=== PATIENT | female | born 1975 | race African-American/Black ===

== ENCOUNTER 2016-12-09 08:57 | Emergency (ER) | payer SELFPAY ==
[~2016-12-09] VITALS: Ht 165.1 cm; Wt 97.2 kg
[2016-12-09] MEDS ORDERED: MIRA3350 PO (09:17)
[2016-12-09] MEDS ORDERED: AUGMENTIN 875 MG TAB PO ONE (10:00)
[2016-12-09] MEDS ORDERED: AUGM875T28 PO (10:01)
[2016-12-09] MEDS ORDERED: IBUP80TA PO (10:01)
[2016-12-09 10:05] VITALS: BP 141/63
== END 2016-12-09 10:06 | disposition home or self-care (01) ==
LOC: M ED 08:57
DX: J01.90 Acute sinusitis, unspecified (principal); Z20.89 Contact with and (suspected) exposure to other communicable diseases; J45.909 Unspecified asthma, uncomplicated; K21.9 Gastro-esophageal reflux disease without esophagitis

== ENCOUNTER → 2016-12-09 | Outpatient (CLI) | payer SELFPAY ==
[~2016-12-09] MED LIST: AUGM875T28 PO; IBUP80TA PO; MIRA3350 PO
--- NOTE | 2016-12-09 09:31 | REP ---
PELVIC SONOGRAPHY: HISTORY: Lower abdominal pain and bloating. No comparison imaging. FINDINGS: Transabdominal and transvaginal scanning are performed. The uterus is markedly enlarged with dimensions of 17.5 x 13.1 x 11.1 cm. Uterine texture is heterogeneous. There is a large fibroid in the uterus measuring 10.9 x 9.5 x 8.2 cm. It is difficult to visualize the endometrium. The left ovary could not be visualized. No left adnexal mass or cyst is seen. Right ovary appears normal measuring 2.9 x 2.1 x 3.1 cm. IMPRESSION: Markedly enlarged fibroid uterus. One 10.9 cm fibroid is identified. The endometrium could not be well identified. The left ovary was not visualized directly. Signed by Ivan Martin MD 12/09/2016 09:35 A
== END ==
LOC: M RAD 07:46
PROVIDERS: ATTEND Physician Assistant
DX: N85.2 Hypertrophy of uterus (principal); D25.9 Leiomyoma of uterus, unspecified

== ENCOUNTER 2018-02-23 09:44 | Day surgery (SDC) | payer OTHER ==
[2018-02-23 10:23] LABS: HEMATOCRIT 26.2 % (36.0-47.0); HEMOGLOBIN 7.4 g/dl (12.0-15.5); MEAN CORPUSCULAR HEMOGLOBIN 17.3 pg (27.0-33.0); MEAN CORPUSCULAR HGB CONC 28.2 g/dl (32.0-36.5); MEAN CORPUSCULAR VOLUME 61.2 fl (80.0-96.0); PLATELET COUNT, AUTOMATED 360 10^3/uL (150-450); RED BLOOD COUNT 4.28 10^6/uL (4.00-5.40); RED CELL DISTRIBUTION WIDTH 20.9 % (11.5-14.5); WHITE BLOOD COUNT 5.4 10^3/uL (4.0-10.0)
[2018-02-23] MEDS: LR 1,000 ML IV ×3 (11:13→23:54)
[2018-02-23 11:17] LABS: CONTROL LINE UCG INT CTR LINE PRESENT; URINE PREG TEST NEGATIVE (NEGATIVE)
[2018-02-23] MEDS ORDERED: LIDOCAINE 2% INJ 100 MG/5 ML SDV (FOR ANES.) As Ordered (13:15)
[2018-02-23] MEDS ORDERED: METOCLOPRAMIDE INJ 10MG/2ML VIAL (J2765) As Ordered (13:15)
[2018-02-23] MEDS ORDERED: dexameTHASONE 4 MG/ML 1ML VIAL (J1100) As Ordered (13:15)
[2018-02-23] MEDS ORDERED: GLYCOPYRROLATE INJ 0.2 MG/ML 2 ML VIAL As Ordered (13:15)
[2018-02-23] MEDS ORDERED: fentaNYL 250 MCG/5 ML INJECTION (J3010) As Ordered (13:15)
[2018-02-23] MEDS ORDERED: ROCURONIUM BROMIDE 50 MG/5 ML VIAL As Ordered ×4 (13:15→15:14)
[2018-02-23] MEDS ORDERED: ONDANSETRON 4MG/2ML VIAL (J2405) As Ordered (13:15)
[2018-02-23] MEDS ORDERED: NEOSTIGMINE 10 MG/10 ML VIAL (J2710) As Ordered (13:15)
[2018-02-23] MEDS ORDERED: PROPOFOL 200 MG/20 ML VIAL As Ordered (13:15)
[2018-02-23] MEDS ORDERED: MIDAZOLAM INJ 2 MG/2 ML VIAL (J2250) As Ordered ×2 (13:16→16:20)
[2018-02-23] MEDS ORDERED: HYDROmorphone HCL 2 MG/ML 1ML VIAL (J1170) As Ordered (13:18)
[2018-02-23] MEDS ORDERED: LABETALOL HCL 100 MG/20 ML VIAL As Ordered (15:39)
[2018-02-23] MEDS: ceFAZolin 2 GM/D5W 50 ML IV BAG (J0690 PER 500MG) As Ordered (16:50)
[2018-02-23] MEDS ORDERED: fentaNYL 100 MCG/2 ML INJECTION (J3010) As Ordered ×2 (17:52→20:01)
[2018-02-23] MEDS: METHYLENE BLUE 0.5% (5MG/ML) 10 ML AMP (PROVAYBLUE)(Q9968 PER 1MG) As Ordered (19:40)
[2018-02-23] MEDS: fentaNYL 100 MCG/2 ML INJECTION (J3010) IV ×4 (19:42→20:02)
[2018-02-23] MEDS ORDERED: MORPHINE 1MG/ML IN 0.9% NACL 100ML IV BAG As Ordered (20:00)
[2018-02-23] MEDS ORDERED: diphenhydrAMINE INJ 50MG/ML VIAL (J1200) IV (20:00)
[2018-02-23] MEDS ORDERED: NALOXONE INJ 0.4 MG/1 ML VIAL (J2310) IV (20:00)
[2018-02-23] MEDS ORDERED: NALBUPHINE HCL 10 MG/ML AMP (J2300) IV (20:00)
[2018-02-23] MEDS ORDERED: EPIDURAL/PCA KEYS XX (20:00)
[2018-02-23] MEDS: MORPHINE 1MG/ML IN 0.9% NACL 100ML IV BAG IV (20:05)
[2018-02-23] MEDS ORDERED: PERCOCET 5MG/325MG TAB PO (20:15)
[2018-02-23] MEDS ORDERED: ALBUTEROL 90 MCG/ACT 8GM HFA INHALER INH (20:15)
[2018-02-23] MEDS ORDERED: HYDROMORPHONE HCL 0.5 MG/ 0.5 ML SYRINGE (J1170 PER 1) IV (20:15)
[2018-02-23] MEDS: ONDANSETRON 4MG/2ML VIAL (J2405) IV (20:23)
[2018-02-23] MEDS ORDERED: KETOROLAC 30 MG/ML VIAL (J1885) As Ordered (21:22)
[2018-02-24 07:43] LABS: HEMATOCRIT 22.2 % (36.0-47.0); MEAN CORPUSCULAR HEMOGLOBIN 17.1 pg (27.0-33.0); MEAN CORPUSCULAR HGB CONC 27.9 g/dl (32.0-36.5); MEAN CORPUSCULAR VOLUME 61.3 fl (80.0-96.0); PLATELET COUNT, AUTOMATED 344 10^3/uL (150-450); RED BLOOD COUNT 3.62 10^6/uL (4.00-5.40); RED CELL DISTRIBUTION WIDTH 20.8 % (11.5-14.5); WHITE BLOOD COUNT 8.5 10^3/uL (4.0-10.0)
[2018-02-24 07:45] LABS: HEMOGLOBIN 6.2 g/dl (12.0-15.5)
[2018-02-24] MEDS: LR 1,000 ML IV (07:55)
[2018-02-24] MEDS: IBUPROFEN 600 MG TAB PO (09:21)
[2018-02-24] MEDS: NORCO, ANEXSIA 5/325MG TABLET (HYDROcodone/ACETAMINOPHEN) PO ×2 (10:12→15:09)
[2018-02-24 11:47] LABS: HEMATOCRIT 21.4 % (36.0-47.0)
[2018-02-24 12:00] LABS: HEMOGLOBIN 6.1 g/dl (12.0-15.5)
== END 2018-02-24 15:40 | disposition home or self-care (01) ==
LOC: M SDC 09:44 → M PED 21:35
DX: D25.9 Leiomyoma of uterus, unspecified (principal); R10.817 Generalized abdominal tenderness; N80.0 Endometriosis of uterus; J45.909 Unspecified asthma, uncomplicated; E66.9 Obesity, unspecified; K21.9 Gastro-esophageal reflux disease without esophagitis; R06.83 Snoring; Z68.35 Body mass index [BMI] 35.0-35.9, adult
CPT/HCPCS: 58573

== ENCOUNTER → 2018-11-08 | Outpatient (CLI) | payer OTHER ==
[~2018-11-08] MED LIST changes: +CLAR10CA3 PO; +IBUP-1022 PO; +NORC1TAB7 PO; +TYLE500T78 PO; +VENTAER INH
[2018-11-08 10:59] LABS: HEMATOCRIT 41.5 % (36.0-47.0); HEMOGLOBIN 13.5 g/dl (12.0-15.5); MEAN CORPUSCULAR HGB CONC 32.5 g/dl (32.0-36.5); MEAN CORPUSCULAR VOLUME 79.8 fl (80.0-96.0); PLATELET COUNT, AUTOMATED 285 10^3/uL (150-450); WHITE BLOOD COUNT 5.3 10^3/uL (4.0-10.0)
--- NOTE | 2018-11-08 11:19 | REP ---
RIGHT ANKLE, FOUR VIEWS: HISTORY: Pain. There is no acute fracture or dislocation. The joint space is normal in appearance. IMPRESSION: There is no acute fracture or dislocation. Electronically Signed by Quinn Simeon MD 11/08/2018 11:25 A
[2018-11-08 11:37] LABS: ALBUMIN 3.5 GM/DL (3.2-5.2); ALT/SGPT 19 U/L (12-78); BILIRUBIN,TOTAL 0.6 MG/DL (0.2-1.0); BLOOD UREA NITROGEN 10 MG/DL (7-18); CALCIUM LEVEL 8.7 MG/DL (8.5-10.1); CARBON DIOXIDE LEVEL 30 MEQ/L (21-32); CHLORIDE LEVEL 108 MEQ/L (98-107); CHOLESTEROL LEVEL 196 MG/DL (<200); CHOLESTEROL RISK RATIO 4.558 (<5); CREATININE FOR GFR 0.81 MG/DL (0.55-1.30); FREE T4 1.06 NG/DL (0.76-1.46); GLOMERULAR FILTRATION RATE > 60.0 (>58); GLUCOSE, FASTING 94 MG/DL (70-100); HDL CHOLESTEROL 43 MG/DL (>40); LDL CHOLESTEROL 136 MG/DL (<100); NON-HDL-C 153 MG/DL; POTASSIUM SERUM 3.9 MEQ/L (3.5-5.1); SODIUM LEVEL 141 MEQ/L (136-145); TOTAL PROTEIN 7.7 GM/DL (6.4-8.2); TRIGLYCERIDES LEVEL 83 MG/DL (<150)
[2018-11-08 11:42] LABS: HEMOGLOBIN A1c 6.2 %
== END ==
LOC: M LAB 10:20
PROVIDERS: ATTEND Internal Medicine
DX: Z00.00 Encounter for general adult medical examination without abnormal findings (principal); M25.571 Pain in right ankle and joints of right foot

== ENCOUNTER 2018-11-22 18:06 | Emergency (ER) | payer OTHER ==
[~2018-11-22] VITALS: Ht 165.1 cm; Wt 90.8 kg
[2018-11-22 18:07] VITALS: BP 171/107
[2018-11-22] MEDS ORDERED: ZYRTTAB8 PO (18:19)
--- NOTE | 2018-11-22 19:05 | REP ---
Left wrist four views: There is a nondisplaced fracture of the base of the fifth digit metacarpal. No other fracture is identified. Mineralization is normal. There are no calcifications or foreign bodies. Joint spaces are unremarkable. Impression: Nondisplaced fracture base of the fifth digit metacarpal. Electronically Signed by Franklin Reddy MD 11/22/2018 06:57 P
--- NOTE | 2018-11-22 19:06 | REP ---
Left hand four views: There is a nondisplaced fracture at the base of the fifth digit metacarpal. Mineralization and joint spaces are otherwise normal. There are no calcifications or foreign bodies. Impression: Fifth digit metacarpal base fracture. Electronically Signed by Franklin Reddy MD 11/22/2018 06:57 P
[2018-11-22] MEDS ORDERED: KETOROLAC TROMETHAMINE 10 MG TAB PO ONE (21:15)
[2018-11-22] MEDS ORDERED: KEFL500C17 PO (21:29)
== END 2018-11-22 22:09 | disposition home or self-care (01) ==
LOC: M ED 18:06
DX: S62.347A Nondisplaced fracture of base of fifth metacarpal bone, left hand, initial encounter for closed fracture (principal); S90.811A Abrasion, right foot, initial encounter; W01.0XXA Fall on same level from slipping, tripping and stumbling without subsequent striking against object, initial encounter; Y92.014 Private driveway to single-family (private) house as the place of occurrence of the external cause; Y93.01 Activity, walking, marching and hiking; J45.909 Unspecified asthma, uncomplicated; K21.9 Gastro-esophageal reflux disease without esophagitis; Z79.51 Long term (current) use of inhaled steroids

== ENCOUNTER 2019-01-17 07:15 | Outpatient (RCR) | payer OTHER ==
[~2019-01-17 07:15] MED LIST changes: +KEFL500C17 PO; +ZYRTTAB8 PO
== END 2019-01-27 ==
LOC: M OT 07:15
PROVIDERS: ATTEND Physician Assistant
DX: S62.317D Displaced fracture of base of fifth metacarpal bone, left hand, subsequent encounter for fracture with routine healing (principal)

== ENCOUNTER → 2019-01-26 | Outpatient (CLI) | payer OTHER ==
--- NOTE | 2019-01-26 14:03 | REPMRS ---
Patient History The patient states she has not had a clinical breast exam in over a year. Family history of breast cancer at age 42 in mother, prostate cancer at age 50 or over in maternal grandfather. No Hormone Replacement Therapy Digital Woman Screen Mammo: January 26, 2019 - Exam #: [id number] Bilateral CC and MLO view(s) were taken. Technologist: Angela Jason, Technologist No prior studies available for comparison. FINDINGS: There are scattered fibroglandular densities. There is no evidence of dominant mass, architectural distortion, or grouped microcalcification typical of malignancy. 3-D tomosynthesis shows no additional findings. Assessment: BI-RADS/ACR category 1 mammogram. Negative Mammogram. Recommendation Routine screening mammogram of both breasts in 1 year (for women over age 40). This patient's Lifetime Breast Cancer RIsk is estimated at 18.1 %. This mammogram was interpreted with the aid of an FDA-approved computer-aided dectection system. Electronically Signed By: Saad Martin MD 01/26/19 0245
== END ==
LOC: M WHC 10:50
PROVIDERS: ATTEND Internal Medicine
DX: Z12.31 Encounter for screening mammogram for malignant neoplasm of breast (principal); Z80.3 Family history of malignant neoplasm of breast

== ENCOUNTER → 2019-01-31 | Outpatient (CLI) | payer OTHER ==
--- NOTE | 2019-01-31 08:56 | REP ---
Clinical: Pain with prior trauma . Technique: Internal rotation, external rotation, and Y view left shoulder . Findings: No acute fracture or dislocation. The acromioclavicular and glenohumeral joints are intact and normal for age. No periarticular calcifications or loose bodies are identified. A very small early spur forming along the inferior margin of the humeral head is suggested. Sub acromial space is normal. Surrounding soft tissues are unremarkable. Impression: Relatively normal age appropriate examination. Very subtle early degenerative changes along the inferior margin of the humeral head noted. Electronically Signed by Kuldeep Bradshaw MD 01/31/2019 08:47 A
== END ==
LOC: M RAD 08:03
PROVIDERS: ATTEND Internal Medicine
DX: M25.512 Pain in left shoulder (principal)

== ENCOUNTER 2019-02-21 07:38 | Outpatient (RCR) | payer OTHER, SELFPAY | END 2019-02-26 | LOC: M PT 07:38 | PROVIDERS: ATTEND Internal Medicine | DX: Z51.89 Encounter for other specified aftercare (principal); M25.373 Other instability, unspecified ankle ==

== ENCOUNTER 2019-02-22 06:45 | Outpatient (RCR) | payer OTHER, SELFPAY | END 2019-02-26 | LOC: M OT 06:45 | PROVIDERS: ATTEND Physician Assistant | DX: S62.317D Displaced fracture of base of fifth metacarpal bone, left hand, subsequent encounter for fracture with routine healing (principal) ==

== ENCOUNTER → 2019-09-15 | Outpatient (CLI) | payer OTHER | LOC: M LABSMTC 11:13 | PROVIDERS: ATTEND Family Medicine | DX: Z11.59 Encounter for screening for other viral diseases (principal); Z20.818 Contact with and (suspected) exposure to other bacterial communicable diseases ==

== ENCOUNTER → 2020-03-28 | Outpatient (REF) | payer OTHER ==
[2020-03-28 18:08] LABS: FREE T4 1.15 NG/DL (0.76-1.46); THYROID STIMULATING HORMONE 0.7 uIU/ML (0.358-3.740)
[2020-03-28 18:49] LABS: HEMOGLOBIN A1c 5.8 %
== END ==
LOC: M SFHCPLAZ 15:29
DX: Z00.00 Encounter for general adult medical examination without abnormal findings (principal)

== ENCOUNTER → 2020-05-27 | Outpatient (CLI) | payer OTHER ==
--- NOTE | 2020-05-27 15:37 | REPMRS ---
Patient History The patient states she has not had a clinical breast exam in over a year. Family history of breast cancer at age 42 in mother, prostate cancer at age 50 or over in maternal grandfather. No Hormone Replacement Therapy Digital Woman Screen Mammo: May 27, 2020 - Exam #: [id number] Bilateral CC and MLO view(s) were taken. Technologist: Mamie [place], Technologist Prior study comparison: January 26, 2019, bilateral digital woman screen mammo performed at [facility]. FINDINGS: There are scattered fibroglandular densities. The Volpara volumetric breast density category is:B. There has been no change in the appearance of the mammogram from the prior studies. There is a mild amount of scattered fibroglandular density which is fairly symmetric. There is no interval development of dominant mass, architectural distortion, or grouped microcalcification suggestive of malignancy. 3-D tomosynthesis shows no additional findings. Assessment: BI-RADS/ACR category 1 mammogram. Negative Mammogram. Recommendation Routine screening mammogram of both breasts in 1 year (for women over age 40). This patient's [facility] Lifetime Breast Cancer Risk is estimated at 17.7 %. This mammogram was interpreted with the aid of an FDA-approved computer-aided dectection system. Electronically Signed By: Saad Martin MD 05/27/20 [id number]
== END ==
LOC: M WHC 13:41
PROVIDERS: ATTEND Internal Medicine
DX: Z12.31 Encounter for screening mammogram for malignant neoplasm of breast (principal)

== ENCOUNTER → 2020-07-25 | Outpatient (REF) | payer OTHER ==
[2020-07-25 18:13] LABS: HEMOGLOBIN A1c 5.9 %
== END ==
LOC: M SFHCPLAZ 14:52
DX: R73.03 Prediabetes (principal)

== ENCOUNTER 2021-03-21 06:06 | Emergency (ER) | payer OTHER ==
[~2021-03-21] VITALS: Ht 165.1 cm; Wt 85.9 kg
[2021-03-21 06:06] VITALS: BP 131/81
--- OUTSIDE RECORDS SUMMARY | 2021-03-21 06:11 | CCD | Continuity of Care Document ---
Author Author Laurie VIRGEN PAAlbertoC Organization Unknown Address [address] [place] [id number] Phone [phone] Care Team Providers Care Set Up Operator Tool Name Role Phone Jordy Morales DO AUTM [phone] Rowena Romeo AUTM [phone] Problems Active Problems Provider Date Abrasion of hand Onset: 11/22/2018 Abrasion of foot Onset: 11/22/2018 Acute sinusitis Onset: 12/09/2016 Fracture of metacarpal bone Onset: 11/22 Social History Type Date Description Comments Sex Unknown ETOH Use Occasionally consumes alcohol Tobacco Use Start: Unknown End: Unknown Patient is a former smoker Allergies, Adverse Reactions, Alerts Description No Known Drug Allergies Medications Active Medications SIG Qnty Indications Ordering Provide r Date Tizanidine HCL 4mg Tablets 1 by mouth three times a day 30tabs S46.812A Aroldo Morton MD 03/03/2021 Mobic 15mg Tablets 1 by mouth after meals every day 30tabs S46.812A Aroldo Morton MD 03/03/2021 Tylenol Extra Strength 500mg Table ts 2 pills 2-3x/d as needed 60tabs S62.317A Junior Banuelos MD Cephalexin 500mg Capsules Every 12 Hours 20caps Unknown 11/22/2018 Proair HFA 108(90Base) mcg/Act Aer osol As Needed Unknown 12 Hour Allergy-D 5-120mg Tablets ER 12HR Twice A Day for Allergy Symptoms 20tabs Unknown Ibuprofen 600mg Tablets Every 6 Hours as needed for Pain 30tabs Unknown Immunizations Description No Information Available Vital Signs Date Vital Result Comment 03/03/2021 9:35am Body Temperature 97.1 F Height 65.5 inches 5'5.50" Weight 193.50 lb BMI (Body Mass Index) 31.7 kg/m2 Results Description No Information Available Procedures Date Code Description Status 03/03/2021 98316 Office/Outpatient Established Hi gh MDM 40-54 Min Completed 03/03/2021 77512 X-Ray Hip Unilateral With Pelvis 2-3 Views Completed 03/03/2021 63227 X-Ray Shoulder Complete Complete d 03/03/2021 73177 Inject/Drain Joint/Bursa Major C ompleted Medical Devices Description No Information Available Encounters Type Date Location Provider Dx Diagnosis Office Visit 03/03/2021 9:00a [place] Keyanna Virgen PA-C S70.02x A Contusion of left hip, initial encounter S46.012A Strain of musc/tend the rota tor cuff of left shoulder, init Assessments Date Code Description Provider 03/03/2021 S70.02xA Contusion of left hip, initial e ncounter Keyanna Virgen PA-C 03/03/2021 S46.012A Strain of muscle(s) and tendon(s) of the rotator cuff of left shoulder, initial encounter Keyanna Virgen PA-C Plan of Treatment 03/03/2021 - Keyanna Virgen PA-C* S70.02xA Contusion of left hip, initial encounter* Follow up:* 4 weeks * S46.012A Strain of muscle(s) and tendon(s) of the rotator cuff of left shoulder, initial encounter * All * New Medication:* Tizanidine HCL 4 mg - 1 by mouth three times a day * Mobic 15 mg - 1 by mouth after meals every day Functional Status Description No Information Available Mental Status Description No Information Available Referrals Description No Information Available
--- OUTSIDE RECORDS SUMMARY | 2021-03-21 06:11 | CCD ---
Author Author [facility] Organization [facility] Address Unknown Phone Unavailable Care Team Providers Care Growth Media Mixer Mushroom Name Role Phone [facility], [facility]-C Unavailable Unavailabl e Fish, [facility], PA-C Unavailable Unavailabl e Fish, [facility], PA-C Unavailable Unavailabl e Fish, [facility], PA-C Unavailable Unavailabl e Fish, [facility], PA-C Un[facility] Unavailabl e Fish, [facility], PA-C Unavailable Unavailabl e Fish, [facility], PA-C Unavailable Unavailabl e Fish, [facility], PA-C Unavailable Unavailabl e Fish, [facility], PA-C Unavailable Unavailabl e Fish, [facility], PA-C Unavailable Unavailabl e Fish, [facility], PA-C Unavailable Unavailabl e Fish, [facility], PA-C Unavailable Unavailabl e Fish, [facility], PA-C Unavailable Unavailabl e Fish, [facility], PA-C Unavailable Unavailabl e Fish, [facility], PA-C Unavailable Unavailabl e Fish, [facility], PA-C Unavailable Unavailabl e Fish, [facility], PA-C Unavailable Unavailabl e Fish, [facility], PA-C Unavailable Unavailabl e Fish, [facility], PA-C Unavailable Unavailabl e Fish, [facility], PA-C Unavailable Unavailabl e Fish, [facility], PA-C Unavailable Unavailabl e Fish, [facility], PA-C Unavailable Unavailabl e Fish, [facility], PA-C Unavailable Unavailabl e Fish, [facility], PA-C Unavailable Unavailabl e Fish, [facility], PA-C Unavailable Unavailabl e Fish, [facility], PA-C Unavailable Unavailabl e Fish, [facility], PA-C Unavailable Unavailabl e Fish, [facility], PA-C Unavailable Unavailabl e Fish, [facility], PA-C Unavailable Unavailabl e Fish, [facility], PA-C Unavailable Unavailabl e Fish, [facility], PA-C Unavailable Unavailabl e Fish, [facility], PA-C Unavailable Unavailabl e Fish, [facility], PA-C Unavailable Unavailabl e Fish, [facility], PA-C Unavailable Unavailabl e Fish, [facility], PA-C Unavailable Unavailabl e Feola, T Janay PA Unavailable Unavailable Feola, T Janay PA Unavailable Unavailable Feola, T Janay PA Unavailable Unavailable Feola, T Janay PA Unavailable Unavailable Feola, T Janay PA Unavailable Unavailable Feola, T Janay PA Unavailable Unavailable Feola, T Janay PA Unavailable Unavailable Feola, T Janay PA Unavailable Unavailable Feola, T Janay PA Unavailable Unavailable Feola, T Janay PA Unavailable Unavailable Feola, T Janay PA Unavailable Unavailable Feola, T Janay PA Unavailable Unavailable Feola, T Janay PA Unavailable Unavailable Feola, T Janay PA Unavailable Unavailable Feola, T Janay PA Unavailable Unavailable Feola, T Janay PA Unavailable Unavailable Feola, T Janay PA Unavailable Unavailable Feola, T Janay PA Unavailable Unavailable Feola, T Janay PA Unavailable Unavailable Feola, T Janay PA Unavailable Unavailable Feola, T Janay PA Unavailable Unavailable Feola, T Janay PA Unavailable Unavailable Feola, T Janay PA Unavailable Unavailable Feola, T Janay PA Unavailable Unavailable Feola, T Janay PA Unavailable Unavailable Feola, T Janay PA Unavailable Unavailable Feola, T Janay PA Unavailable Unavailable Feola, T Janay PA Unavailable Unavailable Feola, T Janay PA Unavailable Unavailable Feola, T Janay PA Unavailable Unavailable Feola, T Janay PA Unavailable Unavailable Feola, T Janay PA Unavailable Unavailable Feola, T Janay PA Unavailable Unavailable Feola, T Janay PA Unavailable Unavailable Feola, T Janay PA Unavailable Unavailable Feola, T Janay PA Unavailable Unavailable Feola, T Janay PA Unavailable Unavailable Feola, T Janay PA Unavailable Unavailable Feola, T Janay PA Unavailable Unavailable Feola, T Janay PA Unavailable Unavailable Feola, T Janay PA Unavailable Unavailable Danielle Jha MD Unavailable Unavailable Danielle Jha MD Unavailable Unavailable Danielle Jha MD Unavailable Unavailable Danielle Jha MD Unavailable Unavailable Danielle Jha MD Unavailable Unavailable Danielle Jha MD Unavailable Unavailable Danielle Jha MD Unavailable Unavailable Danielle Jha MD Unavailable Unavailable Danielle Jha MD Unavailable Unavailable Danielle Jha MD Unavailable Unavailable Danielle Jha MD Unavailable Unavailable Danielle Jha MD Unavailable Unavailable Danielle Jha MD Unavailable Unavailable Danielle Jha MD Unavailable Unavailable Danielle Jha MD Unavailable Unavailable Danielle Jha MD Unavailable Unavailable Danielle Jha MD Unavailable Unavailable Danielle Jha MD Unavailable Unavailable Danielle Jha MD Unavailable Unavailable Danielle Jha MD Unavailable Unavailable Danielle Jha MD Unavailable Unavailable Danielle Jha MD Unavailable Unavailable Danielle Jha MD Unavailable Unavailable Danielle Jha MD Unavailable Unavailable Danielle Jha MD Unavailable Unavailable Javier Pearson PA-C Unavailable Unavailable Javier Pearson PA-C Unavailable Unavailable Javier Pearson PA-C Unavailable Unavailable Pearson, M Christopher PA-C Unavailable Unavailable Pearson, M Christopher PA-C Unavailable Unavailable Pearson, M Christopher PA-C Unavailable Unavailable Pearson, M Christopher PA-C Unavailable Unavailable Pearson, M Christopher PA-C Unavailable Unavailable Pearson, M Christopher PA-C Unavailable Unavailable Pearson, M Christopher PA-C Unavailable Unavailable Pearson, M Christopher PA-C Unavailable Unavailable Pearson, M Christopher PA-C Unavailable Unavailable Pearson, M Christopher PA-C Unavailable Unavailable Pearson, M Christopher PA-C Unavailable Unavailable Pearson, M Christopher PA-C Unavailable Unavailable Pearson, M Christopher PA-C Unavailable Unavailable Pearson, M Christopher PA-C Unavailable Unavailable Pearson, M Christopher PA-C Unavailable Unavailable Pearson, M Christopher PA-C Unavailable Unavailable Pearson, M Christopher PA-C Unavailable Unavailable Pearson, M Christopher PA-C Unavailable Unavailable Pearson, M Christopher PA-C Unavailable Unavailable Pearson, M Christopher PA-C Unavailable Unavailable Pearson, M Christopher PA-C Unavailable Unavailable Pearson, M Christopher PA-C Unavailable Unavailable Pearson, M Christopher PA-C Unavailable Unavailable Re-disclosure Warning The records that you are about to access may contain information from federally-assisted alcohol or drug abuse programs. If such information is present, then the following federally mandated warning applies: This information has been disclosed to you from records protected by federal confidentiality rules (42 CFR part 2). The federal rules prohibit you from making any further disclosure of this information unless further disclosure is expressly permitted by the written consent of the person to whom it pertains or as otherwise permitted by 42 CFR part 2. A general authorization for the release of medical or other information is NOT sufficient for this purpose. The Federal rules restrict any use of the information to criminally investigate or prosecute any alcohol or drug abuse patient.The records that you are about to access may contain highly sensitive health information, the redisclosure of which is protected by Article 27-F of the [facility] Public Health law. If you continue you may have access to information: Regarding HIV / AIDS; Provided by facilities licensed or operated by the [facility] Office of Mental Health; or Provided by the [facility] Office for People With Developmental Disabilities. If such information is present, then the following [facility] mandated warning applies: This information has been disclosed to you from confidential records which are protected by state law. State law prohibits you from making any further disclosure of this information without the specific written consent of the person to whom it pertains, or as otherwise permitted by law. Any unauthorized further disclosure in violation of state law may result in a fine or longterm sentence or both. A general authorization for the release of medical or other information is NOT sufficient authorization for further disc losure. Family History Family Member Name Family Member Gender Family Member Status Date o f Status Description Data Source(s) Unknown Unknown Problem MEDENT ([facility]) Unknown Unknown Problem MEDENT ([facility]) Encounters Encounter Providers Location Date Indications Data Source(s ) Outpatient Attender: Keyanna DAMIAN PA-C Physical Therapy 03/03/2021 09:00:00 AM EDT MEDENT ([facility]) Outpatient Attender: John Pearson PA-C 11/05/2020 01:21:46 PM EDT - 11/05/2020 02:16:38 PM EDT [facility] ([facility]) Unknown [address] [facility] [place] [address] 10/15/2020 12:00:00 AM EDT [facility] [place] [address] [facility] [place] [address] 07/28/2020 12:00:00 AM EST [facility] Outpatient [address] [facility] [place] [address] 07/25/2020 12:00:00 AM EST [facility]CW1 [facility] Outpatient Attender: Veronica Jha MD 0 07/15/2020 05:15:10 PM EST - 07/15/2020 06:12:07 PM EST [facility] Outpatient Attender: Janay JAMES 021 01:24:30 PM EST - 06/21/2020 02:30:49 PM EST [facility] [place] [address] [facility] [place] [address] 06/09/2020 12:00:00 AM EST eCW1 ([facility]) [place] [address] [facility] [place] [address] 05/05/2020 12:00:00 AM EST eCW1 ([facility]) [place] [address] [facility] [address] 03/28/2020 12:00:00 AM EDT eCW1 ([facility]) Medications Medication Brand Name Start Date Product Form Dose Route Admi nistrative Instructions Pharmacy Instructions Status Indications Reaction Description Data Source(s) tizanidine 4 MG Oral Tablet Tizanidine HCL 03/03/2021 12:00:00 AM EDT ORAL active MEDENT ([facility] ) meloxicam 15 MG Oral Tablet [Mobic] Mobic 03/03/2021 12:00:00 AM EDT ORAL active [facility] Fluconazole 150 MG Oral Tablet Fluconazole 150 MG 07/25/2020 12:00: 00 AM EST 1.0 {tablet} active Fluconazole 150 MG eCW1 ([facility]) Fluconazole 150 MG Oral Tablet Fluconazole 150 MG 07/25/2020 12:00: 00 AM EST 1.0 {tablet} active Fluconazole 150 MG eCW1 ([facility]) Fluconazole 150 MG Oral Tablet Fluconazole 150 MG 07/25/2020 12:00: 00 AM EST 1.0 {tablet} active Fluconazole 150 MG eCW1 ([facility]) buspirone hydrochloride 10 MG Oral Tablet BusPIRone HC l 10 MG BusPIRone HCl 10 MG 03/28/2020 12:00:00 AM EDT 1.0 {tablet} activ e BusPIRone HCl 10 MG eCW1 ([facility]) buspirone hydrochloride 10 MG Oral Tablet BusPIRone HC l 10 MG BusPIRone HCl 10 MG 03/28/2020 12:00:00 AM EDT 1.0 {tablet} activ e BusPIRone HCl 10 MG eCW1 ([facility]) buspirone hydrochloride 10 MG Oral Tablet BusPIRone HC l 10 MG BusPIRone HCl 10 MG 03/28/2020 12:00:00 AM EDT 1.0 {tablet} activ e BusPIRone HCl 10 MG eCW1 ([facility]) Insurance Providers Payer name Policy type / Coverage type Policy ID Covered alliance party ID Covered alliance party's relationship to aleman Policy Aleman Plan Information [place] [employer] [facility] [employer] [id number] Self [id number] R [facility] [id number] SP [id number] R [facility] [id number] SP [id number] [employer]. [id number] Self [id number] [facility] [employer] [id number] Self [id number] SamirPitadela. [id number] Self [id number] R O [id number] S [id number] ANSI-Commercial [id number] ANSI-Commercial [id number] ANSI-Commercial [id number] r Commercial [id number] Self [id number] [facility] [id number] Self [id number] O UNAVAILABLE UNAVAILA BLE [employer]. Ins Dept Commercial [id number] Self [id number] [employer] Ins Dept Commercial [id number] Self [id number] D [facility] Dental P [id number] S [id number] SELF PAY UNAVAILABLE SP UNAVAILA BLE [id number] SAMIR [id number] SP [id number] [address] [facility] [id number] SP [id number] SAMIR [id number] SP [id number] SELF PAY ONLY [id number] SP [id number] [facility] [place] O [id number] S [id number] Problems, Conditions, and Diagnoses Code Display Name Description Problem Type Effective Dates Data Source(s) F41.9 [id number] Anxiety Problem 03/28/2020 12:00:00 AM ED T eCW1 ([facility]) Surgeries/Procedures Procedure Description Date Indications Data Source(s) ARTHROCENTESIS ASPIR&/INJECTION MAJOR JT/BURSA 021 12:00:00 AM EDT MEDENT ([facility] ) RADEX SHOULDER COMPLETE MINIMUM 2 VIEWS 03/03/2021 12: 00:00 AM EDT MEDENT ([facility] ) X-Ray Hip Unilateral With Pelvis 2-3 Views 03/03/2021 12:00:00 AM EDT MEDENT ([facility] ) OFFICE OUTPATIENT VISIT 40 MINUTES 03/03/2021 12:00:00 AM EDT MEDENT ([facility] ) Results No Information Social History Code Duration Value Status Description Data Source(s ) Smoking 07/25/2020 12:00:00 AM EST Never Smoker completed Never S moker eCW1 ([facility]) Smoking 07/25/2020 12:00:00 AM EST Never Smoker completed Never S moker eCW1 ([facility]) Smoking 07/25/2020 12:00:00 AM EST Never Smoker completed Never S moker eCW1 ([facility]) Smoking 03/28/2020 12:00:00 AM EDT Former Smoker completed Former Smoker eCW1 ([facility]) Smoking 03/28/2020 12:00:00 AM EDT Former Smoker completed Former Smoker eCW1 ([facility]) Smoking 03/28/2020 12:00:00 AM EDT Former Smoker completed Former Smoker eCW1 ([facility]) Vital Signs ID Date Data Source UNK Name Value Range Interpretation Code Description Data Source(s) Body height 65.5 [in_i] 65.5 [in_i] MEDENT ([facility]) 5'5.50" Body temperature 97.1 [degF] 97.1 [degF] MEDENT ([facility]) Body weight 193.50 [lb_av] 193.50 [lb_av] MEDEN T ([facility]) Body mass index (BMI) [Ratio] 31.7 kg/m2 31.7 k g/m2 MEDENT ([facility]) Body weight 193 [lb_av] 193 [lb_av] eCW1 ([facility]) Body height 65 [in_i] 65 [in_i] eCW1 ([facility]) Respiratory rate 18 /min 18 /min eCW1 ([facility]) Body temperature 97.7 [degF] 97.7 [degF] eCW1 ( [facility]) Body mass index (BMI) [Ratio] 32.11 kg/m2 32.11 kg/m2 eCW1 ([facility]) Systolic blood pressure 128 mm[Hg] 128 mm[Hg] e CW1 ([facility]) Heart rate 82 /min 82 /min eCW1 ([facility]) Diastolic blood pressure 86 mm[Hg] 86 mm[Hg] eCW1 ([facility]) Body weight 187.6 [lb_av] 187.6 [lb_av] eCW1 ([facility]) Body height 65 [in_i] 65 [in_i] eCW1 ([facility]) Body mass index (BMI) [Ratio] 31.21 kg/m2 31.21 kg/m2 eCW1 ([facility]) Heart rate 89 /min 89 /min eCW1 ([facility]) Respiratory rate 18 /min 18 /min eCW1 ([facility]) Body temperature 97.9 [degF] 97.9 [degF] eCW1 ( [facility]) Systolic blood pressure 136 mm[Hg] 136 mm[Hg] e CW1 ([facility]) Diastolic blood pressure 82 mm[Hg] 82 mm[Hg] eCW1 ([facility]) Patient Treatment Plan of Care Planned Activity Planned Date Details Description Data Source (s) Fluconazole 150 MG Oral Tablet 07/25/2020 12:00:00 AM EST eCW1 ([facility]) Fluconazole 150 MG Oral Tablet 07/25/2020 12:00:00 AM EST eCW1 ([facility]) Fluconazole 150 MG Oral Tablet 07/25/2020 12:00:00 AM EST eCW1 ([facility]) buspirone hydrochloride 10 MG Oral Tablet 03/28/2020 12:00:00 AM ED T eCW1 ([facility]) buspirone hydrochloride 10 MG Oral Tablet 03/28/2020 12:00:00 AM ED T eCW1 ([facility]) buspirone hydrochloride 10 MG Oral Tablet 03/28/2020 12:00:00 AM ED T eCW1 ([facility])
--- OUTSIDE RECORDS SUMMARY | 2021-03-21 06:11 | CCD | Continuity of Care Document ---
Author Author Laurie VIRGEN PA-C Organization Unknown Address [address] [place] [id number] Phone [phone] Care Team Providers Care Commercial Insurance Underwriter Name Role Phone Jordy Morales DO AUTM [phone] Rowena Romeo AUTM [phone] Problems Active Problems Provider Date Abrasion of hand Onset: 11/22/2018 Abrasion of foot Onset: 11/22/2018 Acute sinusitis Onset: 12/09/2016 Fracture of metacarpal bone Onset: 11/22 Social History Type Date Description Comments Sex Unknown ETOH Use Occasionally consumes alcohol Tobacco Use Start: Unknown End: Unknown Patient is a former smoker Allergies and adverse reactions Description No Known Drug Allergies Medications Active Medications SIG Qnty Indications Ordering Provide r Date Tizanidine HCL 4mg Tablets 1 by mouth three times a day 30tabs S46.912A Aroldo Morton MD 03/03/2021 Mobic 15mg Tablets 1 by mouth after meals every day 30tabs S46.912A Aroldo Morton MD 03/03/2021 Tylenol Extra Strength [...] Available Procedures Date Code Description Status 03/03/2021 46344 Office/Outpatient Established [facility] MDM 40-54 Min Completed 03/03/2021 01565 X-Ray Hip Unilateral With Pelvis 2-3 Views Completed 03/03/2021 45650 X-Ray Shoulder Complete Complete d 03/03/2021 94084 Inject/Drain Joint/Bursa Major C ompleted Medical Devices Description No Information Available Encounters Type Date Location Provider Dx Diagnosis Office Visit 03/03/2021 9:00a [facility] Keyanna Virgen PA-C S46.912 A Strain unsp musc/fasc/tend at shldr/up arm, left arm, init S16.1xxA Strain of muscle, fascia and tendon at neck level, init S70.02xA Contusion of left hip, initi al encounter Assessments Date Code Description Provider 03/03/2021 S46.912A Strain of unspecifie d muscle, fascia and tendon at shoulder and upper arm level, left arm, initial encounter Keyanna Virgen PA-C 03/03/2021 S16.1xxA Strain of muscle, fa scia and tendon at neck level, initial encounter Keyanna Virgen PA-C 03/03/2021 S70.02xA Contusion of left hip, initial e ncounter Keyanna Virgen PA-C Plan of Treatment Future Appointment(s):* 04/10/2021 8:30 am - Keyanna Virgen PA-C at [facility] 03/03/2021 - Keyanna Virgen PA-C* S46.912A Strain of unspecified muscle, fascia and tendon at shoulder and upper arm level, left arm, initial encounter* New Medication:* Tizanidine HCL 4 mg - 1 by mouth three times a day * Mobic 15 mg - 1 by mouth after meals every day * S16.1xxA Strain of muscle, fascia and tendon at neck level, initial encounter * S70.02xA Contusion of left hip, initial encounter* Follow up:* 4 weeks Functional Status Description No Information Available Mental Status Description No Information Available Referrals Description No Information Available
[2021-03-21] MEDS ORDERED: MELO15TA28 (06:39)
[2021-03-21] MEDS ORDERED: TIZA4TAB4 (06:39)
--- OUTSIDE RECORDS SUMMARY | 2021-03-21 07:58 | CCD ---
Author Author [facility] Organization [facility] Address Unknown Phone Unavailable Care Team Providers Care Sales Engagement Executive Name Role Phone [facility], [facility]-C Unavailable Unavailabl e Fish, [facility], PA-C Unavailable Unavailabl e Fish, [facility], PA-C Unavailable Unavailabl e Fish, [facility], PA-C Unavailable Unavailabl e Fish, [facility], PA-C Un[facility] Unavailable Unavailabl e Fish, [facility], PA-C Unavailable Unavailabl e Fish, [facility], PA-C Unavailable Unavailabl e Fish, [facility], PA-C Unavailable Unavailabl e Fish, [facility], PA-C Unavailable Unavailabl e Fish, [facility], PA-C Unavailable Unavailabl e Fish, [facility], PA-C Unavailable Unavailabl e Fish, [facility], PA-C Unavailable Unavailabl e Fish, [facility], PA-C Unavailable Unavailabl e Fish, [facility], PA-C Unavailable Unavailabl e Fish, [facility], PA-C Unavailable Unavailabl e Fish, [facility], PA-C Unavailable Unavailabl e Fish, [facility], PA-C Unavailable Unavailabl e Fish, [facility], PA-C Unavailable Unavailabl e Fish, [facility], PA-C Unavailable Unavailabl e Fish, [facility], PA-C Unavailable Unavailabl e Fish, [facility], PA-C Unavailable Unavailabl e Fish, [facility], PA-C Unavailable Unavailabl e Fish, [facility], PA-C Unavailable Unavailabl e Fish, [facility], PA-C Unavailable Unavailabl e Fish, [facility], PA-C Unavailable Unavailabl e Fish, [facility], PA-C Unavailable Unavailabl e Fish, [facility], PA-C Unavailable Unavailabl e Fish, [facility], PA-C Unavailable Unavailabl e Fish, [facility], PA-C Unavailable Unavailabl e Fish, [facility], PA-C Unavailable Unavailabl e Fish, [facility], PA-C Unavailable Unavailabl e Fish, [facility], PA-C Unavailable Unavailabl e Fish, [facility], PA-C Unavailable Unavailabl e Fish, [facility], PA-C Unavailable Unavailabl e Fish, [facility], PA-C Unavailable Unavailabl e Feola, T Janay [...] is protected by Article 27-F of the [facility] Public Health law. If you continue you may have access to information: Regarding HIV / AIDS; Provided by facilities licensed or operated by the [facility] Office of Mental Health; or Provided by the [facility] Office for People With Developmental Disabilities. If such information is present, then the following [facility] mandated warning applies: This information has been [...] law may result in a fine or snf sentence or both. A general authorization for the release of medical or other information is NOT sufficient authorization for further disc losure. Family History Family Member Name Family Member Gender Family Member Status Date o f Status Description Data Source(s) Unknown Unknown Problem [facility] ([facility] Unknown Unknown Problem [facility] ([facility]) Encounters Encounter Providers Location Date Indications Data Source(s ) Outpatient Attender: Keyanna DAMIAN PA-C Physical Therapy 03/03/2021 09:00:00 AM EDT MEDENT ([facility]) Outpatient Attender: John Pearson PA-C 11/05/2020 01:21:46 PM EDT - 11/05/2020 02:16:38 PM EDT [facility] ([facility]) Unknown [address] [place] [address] 10/15/2020 12:00:00 AM EDT [facility] [place] [address] [facility] [place] [address] 07/28/2020 12:00:00 AM EST [facility] [place] [address] [facility] [place] [address] 07/25/2020 12:00:00 AM EST eCW1 [facility] Outpatient Attender: Veronica Jha MD 0 07/15/2020 05:15:10 PM EST - 07/15/2020 06:12:07 PM EST [facility] Outpatient Attender: Janay JAMES 021 01:24:30 PM EST - 06/21/2020 02:30:49 PM EST [facility] [place] [address] [facility] [place] [address] 06/09/2020 12:00:00 AM EST eCW1 ([facility]) [place] [address] [place] [address] 05/05/2020 12:00:00 AM EST eCW1 ([facility]) Outpatient [address] [facility] [address] 03/28/2020 12:00:00 AM EDT eCW1 ([facility]) Medications Medication Brand Name Start Date Product Form Dose Route Admi nistrative Instructions Pharmacy Instructions Status Indications Reaction Description Data Source(s) tizanidine 4 MG Oral Tablet Tizanidine HCL 03/03/2021 12:00:00 AM EDT ORAL active MEDENT ([facility] ) meloxicam 15 MG Oral Tablet [Mobic] Mobic 03/03/2021 12:00:00 AM EDT ORAL active [facility] Fluconazole 150 MG Oral Tablet Fluconazole 150 MG 07/25/2020 12:00: 00 AM EST 1.0 {tablet} active Fluconazole 150 MG eCW1 ([facility]) Fluconazole 150 MG Oral Tablet Fluconazole 150 MG 07/25/2020 12:00: 00 AM EST 1.0 {tablet} active Fluconazole 150 MG eCW1 ([facility]) Fluconazole 150 MG Oral Tablet Fluconazole 150 MG 07/25/2020 12:00: 00 AM EST 1.0 {tablet} active Fluconazole 150 MG eCW1 ([facility]) buspirone hydrochloride 10 MG Oral Tablet BusPIRone HC l 10 MG BusPIRone HCl 10 MG 03/28/2020 12:00:00 AM EDT 1.0 {tablet} activ e BusPIRone HCl 10 MG eCW1 ([facility]) buspirone hydrochloride 10 MG Oral Tablet BusPIRone HC l 10 MG BusPIRone HCl 10 MG 03/28/2020 12:00:00 AM EDT 1.0 {tablet} activ e BusPIRone HCl 10 MG eCW1 ([facility]) buspirone hydrochloride 10 MG Oral Tablet BusPIRone HC l 10 MG BusPIRone HCl 10 MG 03/28/2020 12:00:00 AM EDT 1.0 {tablet} activ e BusPIRone HCl 10 MG eCW1 ([facility]) Insurance Providers Payer name Policy type / Coverage type Policy ID Covered libertarian ID Covered libertarian's relationship to aleman Policy Aleman Plan Information [employer] [facility] [employer] [id number] Self [id number] R [facility] [id number] SP [id number] R [facility] [id number] SP [id number] [employer]. [id number] Self [id number] [facility] [employer]. [id number] Self [id number] [employer] [id number] Self [id number] R O [id number] S [id number] ANSI[employer]Commercial [id number] ANSI-Commercial [id number] ANSI-Commercial [id number] Commercial [id number] Self [id number] [facility] [id number] Self [id number] O UNAVAILABLE UNAVAILA BLE [employer]. Ins Dept Commercial [id number] Self [id number] [employer] Dept Commercial [id number] Self [id number] D [facility] P [id number] S [id number] SELF PAY UNAVAILABLE SP UNAVAILA BLE [id number] SAMIR [id number] SP [id number] UMR [facility] [id number] SP [id number] SAMIR [id number] SP [id number] SELF PAY ONLY [id number] SP [id number] [facility] [place] O [id number] S [id number] Problems, Conditions, and Diagnoses Code Display Name Description Problem Type Effective Dates Data Source(s) F41.9 [id number] Anxiety Problem 03/28/2020 12:00:00 AM ED T eCW1 ([facility]) Surgeries/Procedures Procedure Description Date Indications Data Source(s) ARTHROCENTESIS ASPIR&/INJECTION MAJOR JT/BURSA 021 12:00:00 AM EDT MED[facility] ([facility] RADEX SHOULDER COMPLETE MINIMUM 2 VIEWS 03/03/2021 12: 00:00 AM EDT MED[facility] ([facility] ) X-Ray Hip Unilateral With Pelvis 2-3 Views 03/03/2021 12:00:00 AM EDT MED[facility] ([facility] ) OFFICE OUTPATIENT VISIT 40 MINUTES 03/03/2021 12:00:00 AM EDT MED[facility] ([facility] Results No Information Social History Code Duration Value Status Description Data Source(s ) Smoking 07/25/2020 12:00:00 AM EST Never Smoker completed Never S moker eCW1 ([facility]) Smoking 07/25/2020 12:00:00 AM EST Never Smoker completed Never S moker eCW1 ([facility]) Smoking 07/25/2020 12:00:00 AM EST Never Smoker completed Never S moker eCW1 ([facility]) Smoking 03/28/2020 12:00:00 AM EDT Former Smoker completed Former Smoker eCW1 ([facility]) Smoking 03/28/2020 12:00:00 AM EDT Former Smoker completed Former Smoker eCW1 ([facility]) Smoking 03/28/2020 12:00:00 AM EDT Former Smoker completed Former Smoker eCW1 ([facility]) Vital Signs ID Date Data Source UNK Name Value Range Interpretation Code Description Data Source(s) Body height 65.5 [in_i] 65.5 [in_i] MED[facility] ([facility]) 5'5.50" Body temperature 97.1 [degF] 97.1 [degF] MEDENT ([facility]) Body weight 193.50 [lb_av] 193.50 [lb_av] MEDEN T ([facility]) Body mass index (BMI) [Ratio] 31.7 kg/m2 31.7 k g/m2 MEDENT ([facility]) Body weight 193 [lb_av] 193 [lb_av] eCW1 ([facility]) Respiratory rate 18 /min 18 /min eCW1 ([facility]) Body height 65 [in_i] 65 [in_i] eCW1 ([facility]) Body mass index (BMI) [Ratio] 32.11 kg/m2 32.11 kg/m2 eCW1 ([facility]) Heart rate 82 /min 82 /min eCW1 ([facility]) Body temperature 97.7 [degF] 97.7 [degF] eCW1 ( [facility]) Systolic blood pressure 128 mm[Hg] 128 mm[Hg] e CW1 ([facility]) Diastolic blood pressure 86 mm[Hg] 86 mm[Hg] eCW1 ([facility]) Body weight 187.6 [lb_av] 187.6 [lb_av] eCW1 ([facility]) Body height 65 [in_i] 65 [in_i] eCW1 ([facility]) Body mass index (BMI) [Ratio] 31.21 kg/m2 31.21 kg/m2 eCW1 ([facility]) Heart rate 89 /min 89 /min eCW1 ([facility]) Respiratory rate 18 /min 18 /min eCW1 ([facility]) Body temperature 97.9 [degF] 97.9 [degF] eCW1 ( [facility]) Systolic blood pressure 136 mm[Hg] 136 mm[Hg] e CW1 ([facility]) Diastolic blood pressure 82 mm[Hg] 82 mm[Hg] eCW1 ([facility]) Patient Treatment Plan of Care Planned Activity Planned Date Details Description Data Source (s) Fluconazole 150 MG Oral Tablet 07/25/2020 12:00:00 AM EST eCW1 ([facility]) Fluconazole 150 MG Oral Tablet 07/25/2020 12:00:00 AM EST eCW1 ([facility]) Fluconazole 150 MG Oral Tablet 07/25/2020 12:00:00 AM EST eCW1 ([facility]) buspirone hydrochloride 10 MG Oral Tablet 03/28/2020 12:00:00 AM ED T eCW1 ([facility]) buspirone hydrochloride 10 MG Oral Tablet 03/28/2020 12:00:00 AM ED T eCW1 ([facility]) buspirone hydrochloride 10 MG Oral Tablet 03/28/2020 12:00:00 AM ED T eCW1 ([facility])
== END 2021-03-21 07:30 | disposition left against medical advice (07) ==
LOC: M ED 06:06
DX: Z53.21 Procedure and treatment not carried out due to patient leaving prior to being seen by health care provider (principal)

== ENCOUNTER 2021-03-26 12:56 | Outpatient (RCR) | payer OTHER ==
[~2021-03-26 12:56] MED LIST changes: +MELO15TA28; +TIZA4TAB4
== END 2021-03-29 ==
LOC: M PT 12:56
PROVIDERS: ATTEND Physician Assistant Surgical
DX: Z47.89 Encounter for other orthopedic aftercare (principal); S46.812A Strain of other muscles, fascia and tendons at shoulder and upper arm level, left arm, initial encounter; X58.XXXA Exposure to other specified factors, initial encounter; Y92.9 Unspecified place or not applicable

== ENCOUNTER 2021-04-22 11:30 | Outpatient (RCR) | payer OTHER ==
[~2021-04-22 11:30] MED LIST changes: +TIZA10TA; -TIZA4TAB4
== END 2021-04-28 ==
LOC: M PT 11:30
PROVIDERS: ATTEND Physician Assistant Surgical
DX: S46.812A Strain of other muscles, fascia and tendons at shoulder and upper arm level, left arm, initial encounter (principal); X58.XXXA Exposure to other specified factors, initial encounter

== ENCOUNTER → 2021-05-25 | Outpatient (REF) | payer OTHER ==
[~2021-05-25] MED LIST changes: -TIZA10TA; +TIZA4TAB4
== END ==
LOC: M SFHCPLAZ 14:20
PROVIDERS: ATTEND Family Medicine
DX: R73.03 Prediabetes (principal)

== ENCOUNTER 2021-06-23 09:41 | Outpatient (RCR) | payer OTHER ==
[~2021-06-23 09:41] MED LIST changes: +TIZA10TA; -TIZA4TAB4
== END 2021-06-29 ==
LOC: M PT 09:41
PROVIDERS: ATTEND Physician Assistant Surgical
DX: S46.812A Strain of other muscles, fascia and tendons at shoulder and upper arm level, left arm, initial encounter (principal); X58.XXXA Exposure to other specified factors, initial encounter; Y92.9 Unspecified place or not applicable
CPT/HCPCS: 97162; G0283

== ENCOUNTER 2021-07-21 07:45 | Outpatient (RCR) | payer OTHER | END 2021-07-27 | LOC: M PT 07:45 | PROVIDERS: ATTEND Physician Assistant Surgical | DX: S46.812A Strain of other muscles, fascia and tendons at shoulder and upper arm level, left arm, initial encounter (principal); X58.XXXA Exposure to other specified factors, initial encounter; Y92.9 Unspecified place or not applicable | CPT/HCPCS: 97110; 97140; G0283 ==

== ENCOUNTER → 2021-07-24 | Outpatient (CLI) | payer OTHER | LOC: M PLAIMG 14:49 | PROVIDERS: ATTEND Physician Assistant Surgical | DX: R93.7 Abnormal findings on diagnostic imaging of other parts of musculoskeletal system (principal); M54.2 Cervicalgia; M54.16 Radiculopathy, lumbar region ==

== ENCOUNTER → 2021-07-24 | Outpatient (CLI) | payer OTHER ==
[2021-07-24 17:30] LABS: HEMOGLOBIN A1c 5.7 %
== END ==
LOC: M PLAIMG 15:35
PROVIDERS: ATTEND Student in an Organized Health Care Education/Training Program
DX: M79.671 Pain in right foot (principal)

== ENCOUNTER 2021-07-30 12:00 | Outpatient (RCR) | payer OTHER | END 2021-08-27 | LOC: M PT 12:00 | PROVIDERS: ATTEND Physician Assistant Surgical | DX: S46.812A Strain of other muscles, fascia and tendons at shoulder and upper arm level, left arm, initial encounter (principal) | CPT/HCPCS: 97140; G0283 ==

== ENCOUNTER → 2021-10-30 | Outpatient (CLI) | payer OTHER | LOC: M PAIN 13:00 | PROVIDERS: ATTEND Nurse Practitioner Family | DX: M79.10 Myalgia, unspecified site (principal); J45.909 Unspecified asthma, uncomplicated; R73.03 Prediabetes; Z86.59 Personal history of other mental and behavioral disorders; Z79.899 Other long term (current) drug therapy ==

== ENCOUNTER → 2022-03-19 | Outpatient (CLI) | payer OTHER ==
[2022-03-19 13:48] LABS: HEMATOCRIT 40.1 % (36.0-47.0); HEMOGLOBIN 13.5 g/dl (12.0-15.5); MEAN CORPUSCULAR HEMOGLOBIN 28.6 pg (27.0-33.0); MEAN CORPUSCULAR HGB CONC 33.7 g/dl (32.0-36.5); PLATELET COUNT, AUTOMATED 250 10^3/uL (150-450); RED BLOOD COUNT 4.72 10^6/uL (4.00-5.40); WHITE BLOOD COUNT 6.3 10^3/uL (4.0-10.0)
[2022-03-19 13:59] LABS: INR 0.86; PROTHROMBIN TIME 11.9 SECONDS (12.5-14.5)
[2022-03-19 14:00] LABS: PARTIAL THROMBOPLASTIN TIME 30.4 SECONDS (24.8-34.2)
[2022-03-19 14:35] LABS: ALBUMIN 3.6 GM/DL (3.2-5.2); ALT/SGPT 18 U/L (12-78); BILIRUBIN,TOTAL 0.4 MG/DL (0.2-1.0); BLOOD UREA NITROGEN 14 MG/DL (7-18); CALCIUM LEVEL 9.4 MG/DL (8.5-10.1); CARBON DIOXIDE LEVEL 32 MEQ/L (21-32); CHLORIDE LEVEL 105 MEQ/L (98-107); CHOLESTEROL LEVEL 200 MG/DL (<200); CHOLESTEROL RISK RATIO 4.166 (<5); CREATININE FOR GFR 0.71 MG/DL (0.55-1.30); GLOMERULAR FILTRATION RATE > 60.0 (>58); GLUCOSE, FASTING 80 MG/DL (70-100); HDL CHOLESTEROL 48 MG/DL (>40); LDL CHOLESTEROL 136 MG/DL (<100); NON-HDL-C 152 MG/DL; POTASSIUM SERUM 4.5 MEQ/L (3.5-5.1); SODIUM LEVEL 139 MEQ/L (136-145); TOTAL PROTEIN 7.2 GM/DL (6.4-8.2); TRIGLYCERIDES LEVEL 82 MG/DL (<150)
== END ==
LOC: M LAB 13:14
PROVIDERS: ATTEND Student in an Organized Health Care Education/Training Program
DX: Z01.818 Encounter for other preprocedural examination (principal); Z13.220 Encounter for screening for lipoid disorders

== ENCOUNTER 2022-03-26 12:00 | Outpatient (RCR) | payer OTHER | END 2022-03-29 23:59 | disposition home or self-care (01) | LOC: M PT 12:00 | PROVIDERS: ATTEND Physician Assistant Surgical | DX: S46.812D Strain of other muscles, fascia and tendons at shoulder and upper arm level, left arm, subsequent encounter (principal); M75.42 Impingement syndrome of left shoulder; M50.123 Cervical disc disorder at C6-C7 level with radiculopathy ==

== ENCOUNTER → 2022-04-28 | Outpatient (RCR) | payer OTHER | LOC: M PT 03-31 08:30 | PROVIDERS: ATTEND Physician Assistant Surgical | DX: M75.42 Impingement syndrome of left shoulder (principal); M54.16 Radiculopathy, lumbar region ==

== ENCOUNTER → 2022-07-20 | Outpatient (CLI) | payer OTHER ==
[~2022-07-20] MED LIST changes: +ALBU8.5H INH; +BIOF4GEL4 EX; +LEXA1TAB2 PO; +LORA-674 PO; -MELO15TA28; +MELO15TA28 PO; -TIZA10TA; +TIZA10TA PO; +instaflex TOP
== END ==
LOC: M LABSMTC 08:11
PROVIDERS: ATTEND Anesthesiology
DX: Z01.812 Encounter for preprocedural laboratory examination (principal); Z11.52 Encounter for screening for COVID-19

== ENCOUNTER 2022-07-23 07:35 | Day surgery (SDC) | payer OTHER ==
[~2022-07-23] VITALS: Ht 165.1 cm; Wt 89.8 kg
[~2022-07-23 07:35] MED LIST changes: +NS 1,000 ML IV ONE
[2022-07-23] MEDS ORDERED: propofoL 200 MG/20 ML VIAL As Ordered ONE (08:31)
[2022-07-23] MEDS ORDERED: LIDOCAINE 2% 100MG/5ML SDV (FOR ANES.) As Ordered ONE (08:32)
[2022-07-23 09:30] VITALS: BP 172/89
== END 2022-07-23 09:36 | disposition home or self-care (01) ==
LOC: M OPP 07:35
PROVIDERS: ATTEND Surgery
DX: Z12.11 Encounter for screening for malignant neoplasm of colon (principal); D12.3 Benign neoplasm of transverse colon; K64.1 Second degree hemorrhoids; Z79.1 Long term (current) use of non-steroidal anti-inflammatories (NSAID); Z79.51 Long term (current) use of inhaled steroids; Z79.899 Other long term (current) drug therapy

== ENCOUNTER 2022-10-07 14:29 | Emergency (ER) | payer OTHER ==
[~2022-10-07] VITALS: Ht 165.1 cm; Wt 94.0 kg
[~2022-10-07 14:29] MED LIST changes: -NS 1,000 ML IV ONE
[2022-10-07 14:30] VITALS: BP 126/59
[2022-10-07] MEDS ORDERED: LIDOCAINE 1% SDV 30ML VIAL SC SCH (15:40)
[2022-10-07] MEDS ORDERED: LIDOCAINE 1% MDV 20ML VIAL As Ordered ONE (16:35)
[2022-10-07] MEDS ORDERED: LIDOCAINE 1% MDV 20ML VIAL SC ONE (16:40)
[2022-10-07] MEDS ORDERED: CEPHALEXIN 500 MG CAP PO ONE (17:00)
[2022-10-07] MEDS ORDERED: CEPH500C PO (17:28)
== END 2022-10-07 17:36 | disposition home or self-care (01) ==
LOC: M ED 14:29
DX: S60.450A Superficial foreign body of right index finger, initial encounter (principal); Y92.009 Unspecified place in unspecified non-institutional (private) residence as the place of occurrence of the external cause; Z79.52 Long term (current) use of systemic steroids; Z79.899 Other long term (current) drug therapy

== ENCOUNTER 2023-03-11 15:30 | Emergency (ER) | payer OTHER, SELFPAY ==
[~2023-03-11] VITALS: Ht 165.1 cm; Wt 91.5 kg
[~2023-03-11 15:30] MED LIST changes: +CEPH500C PO; +LORA-1041 PO; -LORA-674 PO
[2023-03-11 19:06] VITALS: BP 136/74; TEMP 98; O2SAT 100
[2023-03-11] MEDS ORDERED: LIDOCAINE 1% MDV 20ML VIAL SC ONE (20:00)
[2023-03-11] MEDS ORDERED: CEPH500C PO (20:31)
[2023-03-11] MEDS ORDERED: CEPHALEXIN 500 MG CAP PO ONE (20:35)
== END 2023-03-11 20:42 | disposition home or self-care (01) ==
LOC: M ED 15:30
DX: S61.215A Laceration without foreign body of left ring finger without damage to nail, initial encounter (principal); W25.XXXA Contact with sharp glass, initial encounter; Y92.89 Other specified places as the place of occurrence of the external cause; Y93.89 Activity, other specified; Y99.0 Civilian activity done for income or pay; J45.909 Unspecified asthma, uncomplicated; K21.9 Gastro-esophageal reflux disease without esophagitis; Z79.899 Other long term (current) drug therapy; Z79.51 Long term (current) use of inhaled steroids

== ENCOUNTER → 2023-08-03 | Outpatient (CLI) | payer OTHER | LOC: M PLALAB 13:58 | PROVIDERS: ATTEND Student in an Organized Health Care Education/Training Program | DX: M79.18 Myalgia, other site (principal) ==

== ENCOUNTER → 2023-09-02 | Outpatient (REF) | payer OTHER | LOC: M SFHCPLAZ 16:26 | PROVIDERS: ATTEND Family Medicine | DX: Z00.00 Encounter for general adult medical examination without abnormal findings (principal); R73.03 Prediabetes; Z11.4 Encounter for screening for human immunodeficiency virus [HIV]; Z11.59 Encounter for screening for other viral diseases; Z13.220 Encounter for screening for lipoid disorders ==

== ENCOUNTER → 2023-09-20 | Outpatient (CLI) | payer OTHER ==
[2023-09-20 16:15] LABS: HEMATOCRIT 39.4 % (36.0-47.0); HEMOGLOBIN 13.3 g/dl (12.0-15.5); MEAN CORPUSCULAR HEMOGLOBIN 27.4 pg (27.0-33.0); MEAN CORPUSCULAR HGB CONC 33.8 g/dl (32.0-36.5); MEAN CORPUSCULAR VOLUME 81.2 fl (80.0-96.0); PLATELET COUNT, AUTOMATED 268 10^3/uL (150-450); RED BLOOD COUNT 4.85 10^6/uL (4.00-5.40); WHITE BLOOD COUNT 5.7 10^3/uL (4.0-10.0)
[2023-09-20 16:39] LABS: HEMOGLOBIN A1c 5.5 % (4.0-6.0)
[2023-09-20 16:43] LABS: ALBUMIN 3.8 G/DL (3.2-5.2); ALKALINE PHOSPHATASE 89 U/L (46-116); ALT/SGPT 20 U/L (7.0-40); AST/SGOT 15 U/L (<34); BILIRUBIN,TOTAL 0.4 MG/DL (0.3-1.2); BLOOD UREA NITROGEN 16 MG/DL (9-23); CARBON DIOXIDE LEVEL 29 MMOL/L (20-31); CHLORIDE LEVEL 106 MMOL/L (98-107); CHOLESTEROL LEVEL 214 MG/DL (<200); CHOLESTEROL RISK RATIO 4.52 (<5); GLOMERULAR FILTRATION RATE > 60.0 (>58); GLUCOSE, FASTING 95 MG/DL (60-100); HDL CHOLESTEROL 47.3 MG/DL (>40); LDL CHOLESTEROL 149.9 MG/DL (<100); NON-HDL-C 166.7 MG/DL; SODIUM LEVEL 141 MMOL/L (136-145); TRIGLYCERIDES LEVEL 84 MG/DL (<150)
[2023-09-20 16:46] LABS: TOTAL 25(OH) VITAMIN D 6.7 NG/ML (20.0-100.0)
[2023-09-20 17:28] LABS: HIV 1&2 SCREEN NEGATIVE (NEGATIVE)
[2023-09-20 17:36] LABS: HEPATITIS C VIRUS ABY INDEX 0.03 INDEX (<0.8)
== END ==
LOC: M LAB 14:30
PROVIDERS: ATTEND Student in an Organized Health Care Education/Training Program
DX: R73.03 Prediabetes (principal); Z11.4 Encounter for screening for human immunodeficiency virus [HIV]; Z11.59 Encounter for screening for other viral diseases; Z13.220 Encounter for screening for lipoid disorders; Z00.00 Encounter for general adult medical examination without abnormal findings

== ENCOUNTER 2023-10-04 09:54 | Emergency (ER) | payer OTHER ==
[~2023-10-04] VITALS: Ht 165.1 cm; Wt 88.9 kg
[2023-10-04 14:40] LABS: BASO # 0.1 10^3/uL (0.0-0.2); BASO % 1.3 % (0.0-1.0); EOS # 0.1 10^3/uL (0.0-0.5); EOS % 2.2 % (0.0-3.0); HEMATOCRIT 38.3 % (36.0-47.0); HEMOGLOBIN 12.9 g/dl (12.0-15.5); LYMPH # 1.8 10^3/uL (1.5-5.0); LYMPH % 33.5 % (24.0-44.0); MEAN CORPUSCULAR HGB CONC 33.7 g/dl (32.0-36.5); MEAN CORPUSCULAR VOLUME 83.1 fl (80.0-96.0); MONO # 0.5 10^3/uL (0.0-0.8); MONO % 9.1 % (2.0-8.0); NEUTROPHILS # 2.9 10^3/uL (1.5-8.5); NEUTROPHILS % 53.7 % (36.0-66.0); PLATELET COUNT, AUTOMATED 258 10^3/uL (150-450); RED BLOOD COUNT 4.61 10^6/uL (4.00-5.40); WHITE BLOOD COUNT 5.4 10^3/uL (4.0-10.0)
[2023-10-04] MEDS ORDERED: ISOVUE-370 76% 100ML VIAL As Ordered ONE (14:42)
[2023-10-04 14:56] LABS: ALBUMIN 3.4 G/DL (3.2-5.2); ALKALINE PHOSPHATASE 81 U/L (46-116); ALT/SGPT 20 U/L (7.0-40); AST/SGOT 11 U/L (<34); BILIRUBIN,TOTAL 0.3 MG/DL (0.3-1.2); BLOOD UREA NITROGEN 16 MG/DL (9-23); CALCIUM LEVEL 9.2 MG/DL (8.5-10.1); CARBON DIOXIDE LEVEL 29 MMOL/L (20-31); CHLORIDE LEVEL 109 MMOL/L (98-107); CREATININE FOR GFR 0.94 MG/DL (0.55-1.30); GLOMERULAR FILTRATION RATE > 60.0 (>58); GLUCOSE, FASTING 100 MG/DL (60-100); POTASSIUM SERUM 3.9 MMOL/L (3.5-5.1); SODIUM LEVEL 143 MMOL/L (136-145); TOTAL PROTEIN 6.3 G/DL (5.7-8.2)
[2023-10-04] MEDS ORDERED: BACT800T5 PO (16:11)
[2023-10-04 16:23] VITALS: BP 142/84; TEMP 96.6; O2SAT 100
== END 2023-10-04 16:25 | disposition home or self-care (01) ==
LOC: M ED 09:54
DX: R31.0 Gross hematuria (principal); N28.1 Cyst of kidney, acquired; J45.909 Unspecified asthma, uncomplicated; F12.10 Cannabis abuse, uncomplicated; F10.10 Alcohol abuse, uncomplicated; Z91.048 Other nonmedicinal substance allergy status; Z79.2 Long term (current) use of antibiotics; Z79.52 Long term (current) use of systemic steroids; Z79.899 Other long term (current) drug therapy
CPT/HCPCS: 36415; 74178; 80047; 80053; 81000; 81015; 85025; 87086; 99284; Q9967

== ENCOUNTER → 2023-11-03 | Outpatient (CLI) | payer OTHER ==
[~2023-11-03] MED LIST changes: +BACT800T5 PO
== END ==
LOC: M SOG 14:47
PROVIDERS: ATTEND Physician Assistant
DX: M25.561 Pain in right knee (principal)

== ENCOUNTER → 2023-11-04 | Outpatient (REF) | payer OTHER ==
[2023-11-04 19:34] LABS: APPEARANCE, URINE CLEAR (CLEAR); BACTERIA, URINE AUTO NEGATIVE (NEGATIVE); BILIRUBIN, URINE AUTO NEGATIVE (NEGATIVE); BLOOD, URINE BLOOD NEGATIVE (NEGATIVE); COLOR, URINE YELLOW (YELLOW); GLUCOSE, URINE (UA) AUTO NEGATIVE (NEGATIVE); KETONE, URINE AUTO NEGATIVE (NEGATIVE); LEUKOCYTE ESTERASE, URINE AUTO NEGATIVE (NEGATIVE); MUCUS, URINE SMALL (NEGATIVE); NITRITE, URINE AUTO NEGATIVE (NEGATIVE); PROTEIN, URINE AUTO 1+ mg/dL (NEGATIVE); RBC, URINE AUTO 0 /HPF (0-3); SPECIFIC GRAVITY URINE AUTO 1.012 (1.002-1.035); SQUAMOUS EPITHELIAL CELL UR AU 0 /HPF (0-6); UROBILINOGEN, URINE AUTO 0.2 mg/dL (0.0-2.0); WBC, URINE AUTO 1 /HPF (0-3)
== END ==
LOC: M SMT 17:20
PROVIDERS: ATTEND Urology
DX: R31.0 Gross hematuria (principal)

== ENCOUNTER → 2023-11-11 | Outpatient (CLI) | payer OTHER | LOC: M SOG 08:01 | PROVIDERS: ATTEND Physician Assistant | DX: M77.32 Calcaneal spur, left foot (principal) ==

== ENCOUNTER 2023-11-22 07:48 | Outpatient (RCR) | payer OTHER | END 2023-11-27 | LOC: M PT 07:48 | PROVIDERS: ATTEND Physician Assistant | DX: M25.561 Pain in right knee (principal) ==

== ENCOUNTER → 2023-12-07 | Outpatient (CLI) | payer OTHER | LOC: M WHC 16:00 | PROVIDERS: ATTEND Nurse Practitioner Family | DX: Z12.31 Encounter for screening mammogram for malignant neoplasm of breast (principal) ==

== ENCOUNTER → 2023-12-07 | Outpatient (REF) | payer OTHER ==
[2023-12-09 13:52] LABS: HPV APTIMA Not Detected (Not Detected)
== END ==
LOC: M SFHCWAGY 17:21
PROVIDERS: ATTEND Nurse Practitioner Family
DX: Z12.4 Encounter for screening for malignant neoplasm of cervix (principal)

== ENCOUNTER 2023-12-23 07:00 | Outpatient (RCR) | payer OTHER | END 2023-12-28 | LOC: M PT 07:00 | PROVIDERS: ATTEND Physician Assistant | DX: M25.561 Pain in right knee (principal) ==

== ENCOUNTER → 2024-01-24 | Outpatient (CLI) | payer OTHER | LOC: M SOG 07:57 | PROVIDERS: ATTEND Physician Assistant | DX: M25.571 Pain in right ankle and joints of right foot (principal) ==

== ENCOUNTER → 2024-01-25 | Outpatient (REF) | payer OTHER ==
[2024-01-25 18:39] LABS: APPEARANCE, URINE CLEAR (CLEAR); BACTERIA, URINE AUTO NEGATIVE (NEGATIVE); BILIRUBIN, URINE AUTO NEGATIVE (NEGATIVE); BLOOD, URINE BLOOD NEGATIVE (NEGATIVE); COLOR, URINE YELLOW (YELLOW); GLUCOSE, URINE (UA) AUTO NEGATIVE (NEGATIVE); KETONE, URINE AUTO NEGATIVE (NEGATIVE); LEUKOCYTE ESTERASE, URINE AUTO NEGATIVE (NEGATIVE); NITRITE, URINE AUTO NEGATIVE (NEGATIVE); PROTEIN, URINE AUTO 1+ mg/dL (NEGATIVE); RBC, URINE AUTO 1 /HPF (0-3); SPECIFIC GRAVITY URINE AUTO 1.011 (1.002-1.035); SQUAMOUS EPITHELIAL CELL UR AU 0 /HPF (0-6); UROBILINOGEN, URINE AUTO 0.2 mg/dL (0.0-2.0); WBC, URINE AUTO 1 /HPF (0-3)
== END ==
LOC: M SMT 17:19
PROVIDERS: ATTEND Urology
DX: Z87.898 Personal history of other specified conditions (principal)

== ENCOUNTER 2024-02-23 07:14 | Outpatient (RCR) | payer OTHER | END 2024-02-27 | LOC: M PT 07:14 | PROVIDERS: ATTEND Physician Assistant | DX: S46.012A Strain of muscle(s) and tendon(s) of the rotator cuff of left shoulder, initial encounter (principal) ==

== ENCOUNTER 2024-03-28 07:00 | Outpatient (RCR) | payer OTHER | END 2024-03-29 | LOC: M PT 07:00 | PROVIDERS: ATTEND Physician Assistant | DX: S46.012A Strain of muscle(s) and tendon(s) of the rotator cuff of left shoulder, initial encounter (principal) ==

== ENCOUNTER → 2024-09-12 | Outpatient (REF) | payer OTHER ==
[2024-09-12 13:16] LABS: ALBUMIN 3.7 G/DL (3.2-5.2); BILIRUBIN,TOTAL 0.3 MG/DL (0.3-1.2); CALCIUM LEVEL 9.2 MG/DL (8.5-10.1); CHOLESTEROL RISK RATIO 4.54 (<5); CREATININE FOR GFR 0.8 MG/DL (0.55-1.30); GLOMERULAR FILTRATION RATE 89.7 (>51); LDL CHOLESTEROL 140.6 MG/DL (<100); POTASSIUM SERUM 4.4 MMOL/L (3.5-5.1); TOTAL PROTEIN 7.2 G/DL (5.7-8.2)
[2024-09-12 13:20] LABS: HEMATOCRIT 40.4 % (36.0-47.0); HEMOGLOBIN 13.2 g/dl (12.0-15.5); MEAN CORPUSCULAR HEMOGLOBIN 27.6 pg (27.0-33.0); MEAN CORPUSCULAR HGB CONC 32.7 g/dl (32.0-36.5); MEAN CORPUSCULAR VOLUME 84.5 fl (80.0-96.0); PLATELET COUNT, AUTOMATED 262 10^3/uL (150-450); RED BLOOD COUNT 4.78 10^6/uL (4.00-5.40); WHITE BLOOD COUNT 5.5 10^3/uL (4.0-10.0)
[2024-09-12 13:38] LABS: HEMOGLOBIN A1c 5.6 % (4.0-6.0)
== END ==
LOC: M SFHCPLAZ 09:43
PROVIDERS: ATTEND Family Medicine
DX: Z00.00 Encounter for general adult medical examination without abnormal findings (principal)